=== PATIENT | male | born 1990 | race Caucasian/White ===

== ENCOUNTER 2018-06-13 22:59 | Inpatient (IN) | payer OTHER ==
[~2018-06-13] VITALS: Ht 182.9 cm; Wt 97.5 kg
[~2018-06-13 22:59] MED LIST: CATAPRES0.2 MG PO; DEPAKOTE500 M1 PO; DIVALPROEX SOD500 M2 PO; NICOTINE PATCH1 EAC2 TOP
--- NOTE | 2018-06-13 23:20 | ED PSYCHIATRIC COMPLAINT ---
See Addendum History of Present Illness General Chief Complaint: Psychiatric Related Complaint Stated Complaint: "SI THOUGHTS" Source: patient Exam Limitations: no limitations Vital Signs & Intake/Output Vital Signs & Intake/Output Vital Signs Date Time Temp Pulse Resp B/P B/P Pulse O2 O2 Flow FiO2 Mean Ox Delivery Rate 06/14 0654 98.2 78 18 138/72 98 Room Air 06/14 0121 97.8 76 18 122/64 98 Room Air 06/14 0000 98.7 72 18 115/74 06/13 2320 Room Air 06/13 2320 115/74 06/13 2311 98.7 72 18 98 Room Air ED Intake and Output 06/14 0000 06/13 1200 Intake Total 0 Output Total Balance 0 Intake, Oral 0 Patient 215 lb Weight Weight Reported by Patient Measurement Method Allergies Coded Allergies: No Known Allergies (06/02/17) Reconcile Medications Clonidine (Catapres) 0.2 MG TABLET 0.2 MG PO 2200 reduce anxiety for sound sleep Divalproex Sodium 500 MG TABLET.DR 500 MG PO 0800 mood stabilization one tablet in the morning and two tablets in the evening (total of three tablets daily) Triage Note: PT TO ED FOR +SI THOUGHTS "I WOULD TRY TO OVERDOSE" "I TRIED ON SATURDAY, I DID SO MUCH, BUT I WOKE UP" DENIES HI. ALSO REQUESTS DETOX FROM HEROIN. INJECTS 10 BAGS DAILY, LAST USED THIS AM. DENIES ETOH. SNORTS COCAINE, LAST USED 3 DAYS AGO. Triage Nurses Notes Reviewed? yes Onset: Gradual Duration: week(s):, waxing and waning Timing: recent history Severity: moderate, severe Associated Symptoms: anxiety, suicidal ideation HPI: 27 YO gentleman h/o depression, and heroin/cocaine abuse, presents with several weeks of depression and suicidality. He shares that he injects 10 bags/heroin per day as well as doing cocaine. He last used heroin this morning and last used cocaine several days ago. He notes that he tried to overdose several days ago, "but I woke up." He denies HI, hallucinations and is otherwise well. (Rose BOOTH,Camilo Somers) Past History Travel History Traveled to [place] past 21 day No Medical History Any Pertinent Medical History? 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 No (Rose BOOTH,Camilo Somers) Review of Systems Review of Systems Constitutional: Reports: no symptoms. EENTM: Reports: no symptoms. Respiratory: Reports: no symptoms. Cardiovascular: Reports: no symptoms. GI: Reports: no symptoms. Genitourinary: Reports: no symptoms. Musculoskeletal: Reports: no symptoms. Skin: Reports: no symptoms. Neurological/Psychological: Reports: no symptoms. Hematologic/Endocrine: Reports: no symptoms. Immunologic/Allergic: Reports: no symptoms. All Other Systems: Reviewed and Negative (Rose BOOTH,Camilo Somers) Physical Exam Physical Exam General Appearance: well developed/nourished, mild distress Head: atraumatic Eyes: Bilateral: PERRL, EOMI. Ears, Nose, Throat: normal pharynx, normal ENT inspection Neck: normal inspection, supple, full range of motion Respiratory: no respiratory distress Cardiovascular: regular rate/rhythm Extremities: normal range of motion Neurological/Psychiatric: no motor/sensory deficits, awake, alert, flat, oriented x 3 Appearance/Memory/Insight: appropriate appearance, appropriate insight Behavoir/Eye Contact/Speech: cooperative Thoughts/Hallucinations: no apparent hallucination SAD PERSONS SAD PERSONS Response Value Male Sex? yes 1 Depression/Hopelessness? yes 2 Previous Attempts/Psych Care yes 1 Excessive Ethanol/Drug Use? yes 1 Rational Thinking Loss? yes 2 Single//? yes 1 Organized/Serious Attempt yes 2 Social Support? has support 0 Total 10 SAD PERSONS Done? yes (Rose BOOTH,Camilo Somers) Progress Differential Diagnosis: polysubstance abuse, suicidality vs other. Plan of Care: Orders Procedure Date/time Status Regular Diet 06/14 B Active Continuous Observation Monitor 06/13 2320 Active URINE DRUG SCREEN FOR ER ONLY 06/13 2320 Complete ETHANOL 06/13 2320 Complete COMPREHENSIVE METABOLIC PANEL 06/13 2320 Complete CBC WITHOUT DIFFERENTIAL 06/13 2320 Complete EKG 06/13 2320 Active ED CRISIS PSYCH CONSULT 06/13 2320 Active Current Medications Sig/Sabra Start time Last Medication Dose Stop Time Status Admin Clonidine 0.1 MG BID 06/13 2340 UNVr 06/14 (Catapres) 0000 Gabapentin 300 MG Q8 06/13 2340 UNVr 06/14 (Neurontin) 0631 Laboratory Tests 06/14/18 0018: Urine Opiates Screen > 4000.00 H, Methadone Screen 42, Barbiturate Screen 67, Ur Phencyclidine Scrn < 6.00, Amphetamines Screen < 100, U Benzodiazepines Scrn < 85, Urine Cocaine Screen > 1000 H, Urine Cannabis Screen 14.90 06/14/18 0002: Anion Gap 7, Estimated GFR > 60, BUN/Creatinine Ratio 12.0, Glucose 114 H, Calcium 9.1, Total Bilirubin 0.5, AST 22, ALT 43, Alkaline Phosphatase 67, Total Protein 6.5, Albumin 3.6, Globulin 2.9, Albumin/Globulin Ratio 1.2, CBC w Diff MAN DIFF ORDERED, RBC 5.01, MCV 86.1, MCH 29.8, MCHC 34.6, RDW 13.2, MPV 8.1, Gran % 44.0, Lymphocytes % 39.3, Monocytes % 12.2 H, Eosinophils % 4.2, Basophils % 0.3, Absolute Granulocytes 4.8, Segmented Neutrophils 34 L, Band Neutrophils 1, Absolute Lymphocytes 4.3 H, Lymphocytes 47, Monocytes 13 H, Absolute Monocytes 1.3 H, Eosinophils 5, Absolute Eosinophils 0.5, Absolute Basophils 0, Platelet Estimate ADEQUATE, Normocytic RBCs VERIFIED, Normochromic RBCs VERIFIED, Serum Alcohol < 10.0 Initial ED EKG: normal axis, normal intervals, normal p-waves, normal QRS complex, normal sinus rhythm (Rose BOOTH,Camilo Somers) Departure Departure Disposition: HOME OR SELF CARE Condition: Stable Clinical Impression Primary Impression: Depression Secondary Impressions: Polysubstance abuse Referrals: Patient Has No Primary Care Dr (PCP/Family) Departure Forms: Customer Survey General Discharge Information Comments pt signed out to dr. stack, 06/14/18, 7am...crises to evaluate (Rose BOOTH,Camilo Somers) Departure Comments 06/14/2018 The patient was signed out to me by Dr. Rose. He is pending evaluation by crisis. (Jerod Stack DO.)
[2018-06-14 00:21] LABS: ABSOLUTE BASOPHIL COUNT 0 /CUMM (0.0-0.2); ABSOLUTE EOSINOPHIL COUNT 0.5 /CUMM (0.0-0.7); ABSOLUTE GRANULOCYTE CT 4.8 /CUMM (1.4-6.5); ABSOLUTE LYMPH COUNT 4.3 /CUMM (1.2-3.4); ABSOLUTE MONOCYTE COUNT 1.3 /CUMM (0.10-0.60); BASOPHIL % 0.3 % (0.0-2.0); EOSINOPHIL % 4.2 % (0-5); HEMATOCRIT 43.2 % (42-52); MEAN CORPUSCULAR HGB 29.8 PG (27.0-31.0); MEAN CORPUSCULAR HGB CONC 34.6 G/DL (33.0-37.0); MEAN CORPUSCULAR VOLUME 86.1 FL (80.0-94.0); MEAN PLATELET VOLUME 8.1 FL (7.4-10.4); PLATELET COUNT 220 /CUMM (130-400); RBC DISTRIBUTION WIDTH 13.2 % (11.5-14.5); RED BLOOD CELL CT 5.01 /CUMM (4.70-6.10)
--- NOTE | 2018-06-14 08:11 | ED PSYCH CRISIS CONSULTATION ---
See Addendum Crisis Consult Basic Assessment Date of Consult: 06/14/18 Responsible Person/Accompanied By: Self Insurance Authorization: Insurance #1: Insurance name: GREGORIO HO Phone number: Policy number: [id number] Group number: Authorization number: ED Provider: Patient's ED Provider: Jerod Stack DO Primary Care Physician: Patient's PCP: Patient Has No Primary Care Dr PCP's Phone Number: Current Psychiatrist: None Chief Complaint: Psychiatric Related Complaint Patient's Quote: "I've been using Heroin and depression." Present Illness: The patient is a 27 year old, single male presenting to the ED with increased depression, suicidal ideations and a request to detox. The patient has a long history of mental health and substance abuse issues with subsequent treatment. He presents with a depressed mood and flat affect. He reports that his depression has increased over the last week, however is unable to state a specific trigger. He states that he did overdose on Saturday and denies that it was a specific suicide attempt, however does state that he was upset when he woke up. Of note, he did tell triage that he overdosed in a suicide attempt. He reports that he has been feeling depressed, helpless, hopeless, useless and worthless. He denies any current suicidal ideations however, states "I don't want to live." He denies any AH / VH / HI. He states that he has never attempted suicide in past, however has had suicidal thoughts. He reports that he has had sleep disturbances and poor motivation. He denies any history of trauma or abuse.He is currently living with a friend, denies being in a relationship and states that he does not have any children. He reports that he has not been working and that he has only been supporting himself through help from family and friends. He has been abusing Cocaine and Heroin and states his Cocaine use is intranasal and "not often," his Heroin use is daily and IV 10-15 bags. He is not currently in any treatment and was last on [facility] in 2017. He believes that he needs another inpatient admission. He states that there is no one available to contact for collateral. The C-SSRS was completed and placed in the chart. Patient's Address: [address] [place] [address] Other Phone Number: Who Do You Live With? Other (see notes) Family/Informants Interviewed: He states that there is no one available to contact. Allergies - Coded Allergies: No Known Allergies (06/02/17) Current Medications - Scheduled Medications Clonidine (Catapres) 0.2 MG TABLET 0.2 MG PO 2200 reduce anxiety for sound sleep #14 TAB Prescribed by Del Zaman MD on 06/06/17 Divalproex Sodium 500 MG TABLET.DR 500 MG PO 0800 mood stabilization #42 TAB Prescribed by Del Zaman MD on 06/06/17 Laboratory Results: Laboratory Tests 06/14/18 0018: Urine Opiates Screen > 4000.00 H, Methadone Screen 42, Barbiturate Screen 67, Ur Phencyclidine Scrn < 6.00, Amphetamines Screen < 100, U Benzodiazepines Scrn < 85, Urine Cocaine Screen > 1000 H, Urine Cannabis Screen 14.90 06/14/18 0002: Anion Gap 7, Estimated GFR > 60, BUN/Creatinine Ratio 12.0, Glucose 114 H, Calcium 9.1, Total Bilirubin 0.5, AST 22, ALT 43, Alkaline Phosphatase 67, Total Protein 6.5, Albumin 3.6, Globulin 2.9, Albumin/Globulin Ratio 1.2, CBC w Diff MAN DIFF ORDERED, RBC 5.01, MCV 86.1, MCH 29.8, MCHC 34.6, RDW 13.2, MPV 8.1, Gran % 44.0, Lymphocytes % 39.3, Monocytes % 12.2 H, Eosinophils % 4.2, Basophils % 0.3, Absolute Granulocytes 4.8, Segmented Neutrophils 34 L, Band Neutrophils 1, Absolute Lymphocytes 4.3 H, Lymphocytes 47, Monocytes 13 H, Absolute Monocytes 1.3 H, Eosinophils 5, Absolute Eosinophils 0.5, Absolute Basophils 0, Platelet Estimate ADEQUATE, Normocytic RBCs VERIFIED, Normochromic RBCs VERIFIED, Serum Alcohol < 10.0 Past History Past Medical History Neurological: NONE Cardiovascular: NONE Respiratory: NONE Gastrointestinal: NONE Hepatic: hepatitis C Renal: NONE Musculoskeletal: NONE Psychiatric: bipolar disease, heroin abuse Endocrine: NONE Blood Disorders: NONE Cancer(s): NONE 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 Physical Limitations (Interventions): None noted Psychiatric Treatment History Psych Treatment Psychiatric Treatment Yes Inpatient Treatment Yes Outpatient Treatment Yes Location of [facility] Reason for Treatment Depression, SI and substance abuse Dates of Treatment [facility] 2015 and 2017 Response to Treatment He states that he generally does not follow through with OP treatment. Diagnosis by History: Bipolar Disorder, Opioid Abuse Substance Use/Abuse History Drug Use/Abuse 1 Substances Used/Abused Yes Substance Used/Abused Heroin First Use 17 years old Last Used Yesterday: 06/13/2018 How much used/taken "10-15 bags." How often Daily For how long He has struggled with use for many years and has had periods of sobriety. Route of use IV Drug Use/Abuse 2 Substances Used/Abused Yes Substance Used/Abused Cocaine First Use 18 years old Last Used "2-3 days ago" How much used/taken Unclear How often "not often." For how long Unclear Route of use intranasal Substance Abuse Treatment Substance Abuse Treatment Past Substance Abuse TX Yes Inpatient Treatment Yes [facility] Treatment Opioid abuse Dates of Treatment Last rehab was at [facility], last year Response to Treatment He states that he has been able to be maintain sobriety for 7-8 months. Comments: N/A Current Mental Status Mental Status Orientation: Person, Place, Situation Affect: Depressed, Flat Speech: WNL Neuro-vegetative: Helpless, Sleep Disturbance, Feeling hopeless Appearance Appearance- Dress/Hygiene: The patient was lying in bed, in hospital attire disheveled. Behaviors Thought Process: WNL Thought Content: WNL Memory: WNL Insight: WNL SI/HI Risk Assessment Past Suicidal Ideation/Attempts Yes Current Suicidal Ideation/Att Yes Past Homicidal Ideation/Att: No Current Homicidal Ideation/Attempts No Degree of Intent: He states that he overdosed on Saturday and intitally told triage that it was suicide attempt, however then stated it wasn't. He then states that despite not intentionally trying to kill himself, that he was upset he woke up and does not want to live. Danger To: Self Gravely Disabled: N/A Risk Factors: access to lethal means, high anxiety/distress, SA/MH hospitalized, substance abuse, male, limited support Lethality Ratin PTSD Checklist PTSD Done? patient declined (Denies trauma or abuse hx.) ED Management Sitter: Yes Restraints: No DSM5/PS Stressors/Medical Prob Diagnosis' (DSM 5, Stressors, Medical): F32.9 Unspecified Depressive Disorder F11.20 Opioid Use Disoder F14.20 Stimulant Use disorder, Cocaine type Medical: Unremarkable Stressors: Finances, employment, limited support Current GAF: 28 Comments: N/A Departure Disposition Psych Medical Clearance Date: 06/14/18 Medically Cleared at: 714 Time Started: 714 Time Ended: 799 Psychiatrist Consulted: Dr. Colon Date Disposition Established: 06/14/18 Time Disposition Established: 844 Plan for Disposition - Modality: Bed Search vs. [facility] Contact: N/A Telephone: N/A Rationale for Disposition: The patient presents with depressed mood, anxiety, feeling helpless, feeling hopeless and wanting to . The patient had an overdose this past Saturday and was upset that he woke up. The case was discussed with Dr. Colon and he finds the patient to be in need of an inpatient admission. The patient will be a bed search vs admission to [facility]. Type of IP Admission: Voluntary Additional Instructions: N/A Referrals Patient Has No Primary Care Dr (PCP/Family)
--- NOTE | 2018-06-14 11:57 | IP CRISIS DIAG ASSESS PSYCH ---
Diagnostic Assessment Basic Assessment Insurance Authorization: Insurance #1: Insurance name: GREG[employer]IO HO Phone number: Policy number: [id number] Group number: Authorization number: Prior Authorization obtained through the online [facility] portal Authorization # [id number] Client Authorization # [id number] Type of Request INITIAL Primary Care Physician: Patient's PCP: Patient Has No Primary Care Dr PCP's Phone Number: Patient's Quote: "I've been using Heroin and depression." Present Illness: The patient is a 27 year old, single male presenting to the ED with increased depression, suicidal ideations and a request to detox. The patient has a long history of mental health and substance abuse issues with subsequent treatment. He presents with a depressed mood and flat affect. He reports that his depression has increased over the last week, however is unable to state a specific trigger. He states that he did overdose on Saturday and denies that it was a specific suicide attempt, however does state that he was upset when he woke up. Of note, he did tell triage that he overdosed in a suicide attempt. He reports that he has been feeling depressed, helpless, hopeless, useless and worthless. He denies any current suicidal ideations however, states "I don't want to live." He denies any AH / VH / HI. He states that he has never attempted suicide in past, however has had suicidal thoughts. He reports that he has had sleep disturbances and poor motivation. He denies any history of trauma or abuse.He is currently living with a friend, denies being in a relationship and states that he does not have any children. He reports that he has not been working and that he has only been supporting himself through help from family and friends. He has been abusing Cocaine and Heroin and states his Cocaine use is intranasal and "not often," his Heroin use is daily and IV 10-15 bags. He is not currently in any treatment and was last on [facility] in 2017. He believes that he needs another inpatient admission. He states that there is no one available to contact for collateral. The C-SSRS was completed and placed in the chart. Patient's Address: [address] [place] [address] Other Phone Number: Who Do You Live With? Other (see notes) Feel Safe in Your Relationship No (Denies being in a relationship) If No, Please Elaborate: N/A Marital Status: single Do You Have Children? No Primary Language? [place] Island[place] Language(s) Spoken At Home: [place] Family/Informants Interviewed: He states that there is no one available to contact. Allergies - Coded Allergies: No Known Allergies (06/02/17) Current Medications - Scheduled Medications Clonidine (Catapres) 0.2 MG TABLET 0.2 MG PO 2200 reduce anxiety for sound sleep #14 TAB Prescribed by Del Zaman MD on 06/06/17 Divalproex Sodium 500 MG TABLET.DR 500 MG PO 0800 mood stabilization #42 TAB Prescribed by Del Zaman MD on 06/06/17 Consequences of Psych Med Use: N/A Comment: N/A Lab Results: Laboratory Tests 06/14/18 0018: Urine Opiates Screen > 4000.00 H, Methadone Screen 42, Barbiturate Screen 67, Ur Phencyclidine Scrn < 6.00, Amphetamines Screen < 100, U Benzodiazepines Scrn < 85, Urine Cocaine Screen > 1000 H, Urine Cannabis Screen 14.90 06/14/18 0002: Anion Gap 7, Estimated GFR > 60, BUN/Creatinine Ratio 12.0, Glucose 114 H, Calcium 9.1, Total Bilirubin 0.5, AST 22, ALT 43, Alkaline Phosphatase 67, Total Protein 6.5, Albumin 3.6, Globulin 2.9, Albumin/Globulin Ratio 1.2, CBC w Diff MAN DIFF ORDERED, RBC 5.01, MCV 86.1, MCH 29.8, MCHC 34.6, RDW 13.2, MPV 8.1, Gran % 44.0, Lymphocytes % 39.3, Monocytes % 12.2 H, Eosinophils % 4.2, Basophils % 0.3, Absolute Granulocytes 4.8, Segmented Neutrophils 34 L, Band Neutrophils 1, Absolute Lymphocytes 4.3 H, Lymphocytes 47, Monocytes 13 H, Absolute Monocytes 1.3 H, Eosinophils 5, Absolute Eosinophils 0.5, Absolute Basophils 0, Platelet Estimate ADEQUATE, Normocytic RBCs VERIFIED, Normochromic RBCs VERIFIED, Serum Alcohol < 10.0 Toxicology Screen Completed? Yes Results: positive (Cocaine and Opiates) Symptoms of Use: N/A Past History Past Medical History Medical History: None/Denies Past Surgical History Surgical History LASIX EYE SRX Abuse/Trauma History Trauma History/Current Trauma: Denies Legal History Current Legal Status: none (Pt. denies) Have you ever been arrested? 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 Physical Limitations (Interventions): None noted Psychiatric Treatment History Psych Treatment Psychiatric Treatment Yes Inpatient Treatment Yes Outpatient Treatment Yes Location of Treatment [facility] Reason for Treatment Depression, SI and substance abuse Dates of Treatment [facility] 2016 and 2017 Response to Treatment He states that he generally does not follow through with OP treatment. Diagnosis by History: Bipolar Disorder, Opioid Abuse Risk Factors: access to lethal means, high anxiety/distress, SA/MH hospitalized, substance abuse, male, limited support Substance Use/Abuse History Drug Use/Abuse minimum 12mo Hx 1 Substances Used/Abused Yes Substance Used/Abused Cocaine First Use 18 years old Last Used "2-3 days ago" How much used/taken Unclear How often "not often." For how long Unclear Route of use intranasal Drug Use/Abuse minimum 12mo Hx 2 Substances Used/Abused Yes Substance Used/Abused Heroin First Use 17 years old Last Used Yesterday; 06/13/2018 How much used/taken "10-15 bags" How often Daily Route of use IV Substance Abuse Treatment Substance Abuse Treatment Past Substance Abuse TX Yes Inpatient Treatment Yes [facility] Treatment Opioid abuse Dates of Treatment Last rehab was at [facility], last year Response to Treatment He states that he has been able to be maintain sobriety for 7-8 months. Comments: N/A Sexual History Sexual Concerns: None noted Education History Highest Level of Education: high school/GED Preferred Learning Style: Unclear Current Mental Status Mental Status Orientation: Person, Place, Situation Affect: Depressed, Flat Speech: WNL Neuro-vegetative: Helpless, Sleep Disturbance, Feeling hopeless Appearance Appearance- Dress/Hygiene: The patient was lying in bed, in hospital attire disheveled. Behaviors Thought Process: WNL Thought Content: WNL Memory: WNL Insight: WNL SI/HI Risk Assessment - Minimum 6mo History- Past Suicidal Ideation/Attempts Yes Current Suicidal Ideation/Att Yes Past Homicidal Ideation/Att: No Current Homicidal Ideation/Attempts No Degree of Intent: He states that he overdosed on Saturday and intitally told triage that it was suicide attempt, however then stated it wasn't. He then states that despite not intentionally trying to kill himself, that he was upset he woke up and does not want to live. Danger To: Self Gravely Disabled: N/A Risk Factors: access to lethal means, high anxiety/distress, SA/MH hospitalized, substance abuse, male, limited support Lethality Ratin Needs/Init TX Plan/Goals: Admit to the inpatient unit for safety and symptom stability. Work with the provider on medicatoin evaluation. Work with the treatment team to transition to care in the community. Attend group and individual sessions. AUDIT-C Questionnaire: AUDIT-C Questionnaire: Response Value ETOH use in the past year Never 0 # drinks typical/day Doesn't Drink 0 6 or > drinks per occasion Never 0 Total 0 DSM5/PS Stressors/Medical Prob Diagnosis' (DSM 5, Stressors, Medical): F32.9 Unspecified Depressive Disorder F11.20 Opioid Use Disoder F14.20 Stimulant Use disorder, Cocaine type Medical: Unremarkable Stressors: Finances, employment, limited support Current GAF: 28 Comments: N/A
[2018-06-14 12:37] VITALS: BP 111/66
--- NOTE | 2018-06-14 19:37 | History & Physical ---
General Information and HPI MD Statement: I have seen and personally examined KUNAL MORA and documented this H&P. The patient is a 27 year old M who presented with a patient stated chief complaint of suicidal thoughts- overdose. Source of Information: patient Exam Limitations: no limitations History of Present Illness: The patient is a 27 yo male with h/o depression and substance abuse (heroin/ cocaine) who presented in the ED with complaints of suicidal ideation (thoughts of overdosing on heroin) and requesting detox. His current habit was 10 bags of heroin daily along with cocaine. Last use of heroin was the day of presentation. He has a history of prior detox. At the time of my exam on 06/14 the patient denied any significant withdrawal symptoms. Allergies/Medications Allergies: Coded Allergies: No Known Allergies (06/02/17) Home Med list No Known Home Medications Past History Travel History Traveled to [place] past 21 day No Medical History Neurological: NONE EENT: NONE Cardiovascular: NONE Respiratory: NONE Gastrointestinal: NONE Hepatic: hepatitis C Renal: NONE Musculoskeletal: NONE Psychiatric: bipolar disease, heroin abuse Endocrine: NONE Blood Disorders: NONE Cancer(s): NONE LEAD NURSE/Reproductive: NONE History of MRSA: No History of VRE: No History of CDIFF: No Isolation History: Standard Surgical History Surgical History: none, non-contributory (NO SURGERY), N Past Family/Social History Family History Relations & Conditions if any ALL (THE PATIENT WAS ADOPTED AND HAS NO KNOWLEDGE OF HIS BIOLGICAL FAMILY.). Psychosocial History Where do you live? Home Services at Home: None Primary Language: Malagasy Smoking Status: Current Everyday Smoker (1 PPD) ETOH Use: occasional use Illicit Drug Use: cocaine, heroin Functional Ability ADLs Independent: dressing, eating, toileting, bathing. Ambulation: independent IADLs Independent: shopping, housework, finances, food prep, telephone, transportation , medication admin. Review of Systems Review of Systems Constitutional: Denies: no symptoms. EENTM: Denies: no symptoms. Cardiovascular: Denies: no symptoms. Respiratory: Denies: no symptoms. GI: Denies: no symptoms. Genitourinary: Denies: no symptoms. Musculoskeletal: Denies: no symptoms. Skin: Denies: no symptoms. Neurological/Psychological: Reports: depressed, emotional problems. Hematologic/Endocrine: Denies: no symptoms. Immunologic/Allergic: Denies: no symptoms. Exam & Diagnostic Data Last 24 Hrs of Vital Signs/I&O Vital Signs Date Time Temp Pulse Resp B/P B/P Pulse O2 O2 Flow FiO2 Mean Ox Delivery Rate 06/15 1939 98.4 59 128/64 06/15 0819 98.9 52 17 119/66 06/15 0740 98.9 52 119/66 06/148 55 123/57 06/14 2217 55 123/57 06/14 2008 98.6 60 137/65 Physical Exam General Appearance Alert, Oriented X3, Cooperative, No Acute Distress Skin No Rashes, No Breakdown, No Significant Lesion HEENT Atraumatic, PERRLA, EOMI, Mucous Membr. moist/pink Neck Supple, No JVD, No thryomegaly, +2 Carotid Pulse wo Bruit, No LAD Cardiovascular Regular Rate, Normal S1, Normal S2, No Murmurs Lungs Clear to Auscultation, Normal Air Movement Abdomen Normal Bowel Sounds, Soft, No Tenderness, No Hepatospenomegaly, No Masses Neurological Exam Findings: Normal Gait, Normal Speech, Strength at 5/5 X4 Ext, Normal Tone, Sensation Intact, Cranial Nerves 3-12 NL, Reflexes 2+ Cranial Nerves II through XII: INTACT Extremities No Clubbing, No Cyanosis, No Edema, Normal Pulses, No Tenderness/ Swelling Vascular Normal Pulses, Pulses Symmetrical Last 24 Hrs of Labs/Pedro Luis: Laboratory Tests 06/14/18 0018: Urine Opiates Screen > 4000.00 H, Methadone Screen 42, Barbiturate Screen 67, Ur Phencyclidine Scrn < 6.00, Amphetamines Screen < 100, U Benzodiazepines Scrn < 85, Urine Cocaine Screen > 1000 H, Urine Cannabis Screen 14.90 06/14/18 0002: Anion Gap 7, Estimated GFR > 60, BUN/Creatinine Ratio 12.0, Glucose 114 H, Calcium 9.1, Total Bilirubin 0.5, AST 22, ALT 43, Alkaline Phosphatase 67, Total Protein 6.5, Albumin 3.6, Globulin 2.9, Albumin/Globulin Ratio 1.2, CBC w Diff MAN DIFF ORDERED, RBC 5.01, MCV 86.1, MCH 29.8, MCHC 34.6, RDW 13.2, MPV 8.1, Gran % 44.0, Lymphocytes % 39.3, Monocytes % 12.2 H, Eosinophils % 4.2, Basophils % 0.3, Absolute Granulocytes 4.8, Segmented Neutrophils 34 L, Band Neutrophils 1, Absolute Lymphocytes 4.3 H, Lymphocytes 47, Monocytes 13 H, Absolute Monocytes 1.3 H, Eosinophils 5, Absolute Eosinophils 0.5, Absolute Basophils 0, Platelet Estimate ADEQUATE, Normocytic RBCs VERIFIED, Normochromic RBCs VERIFIED, Serum Alcohol < 10.0 Assessment/Plan Assessment: Impression/Plan: #Depression/Suicidal Ideation- as noted above, the patient presented with increasing depression and thoughts of overdosing on drugs. He described feeling depressed, helpless, and hopeless. No prior suicide attempts in past. Plan: Admit to [facility]/Psychiatry for evaluation. Medication as per psychiatry. #Substance Abuse- heroin and cocaine. Using 10-15 bags of cocaine daily. Requesting detox. Has been through detox previously and did have a period of sobriety. No h/o severe withdrawal. Plan: Methadone detox as per psychiatry. Gabapentin, Librium/Lorazepam, Clonidine. Consider Bentyl/Baclofen if symptomatic. #Nicotine Dependence- smokes 1 PPD cigarettes. Plan: Nicotine Patch. As Ranked By This Provider Problem List: 1. Heroin abuse 2. Depression 3. Suicidal ideation 4. Depression with suicidal ideation 5. Polysubstance abuse Miscellaneous Miscellaneous Documentation Attending Case Discussed With: Isaiah BOOTH,Joao Primary Care Physician: Patient Has No Primary Care Dr - none Patient sees these Specialists NONE Level of Patient Care: BERNA Carnes Consults Needed: Consulting Physician: NONE Attending MD Review Statement Attending Statement Attending MD Statement: examined this patient, reviewed EMR data (avail), discussed with nursing, amended to note Attending Assessment/Plan: ABOVE
[2018-06-14 20:08] VITALS: BP 137/65
[2018-06-14 22:17] VITALS: BP 123/57
[2018-06-15 07:40] VITALS: BP 119/66
--- NOTE | 2018-06-15 08:41 | CPS PROVIDER INIT ASMT PSYCH ---
Psychiatric Admission Display Maker's Note Reviewed: Yes Patient Seen and Examined: Yes Identifying Information: The patient is a 27 year old, single male presenting to the ED with increased depression, suicidal ideations and a request to detox. Chief Complaint: "I've been using Heroin and depression." Reaction to Hospitalization: The patient was admitted voluntarily History of Present Illness Onset of Illness: At least since January 2016 Circumstances Leading to Admission: The patient is a 27 year old, single male presenting to the ED with increased depression, suicidal ideations and a request to detox. The patient has a long history of mental health and substance abuse issues with subsequent treatment. He presents with a depressed mood and flat affect. He reports that his depression has increased over the last week, however is unable to state a specific trigger. He states that he did overdose on Saturday and denies that it was a specific suicide attempt, however does state that he was upset when he woke up. Of note, he did tell triage that he overdosed in a suicide attempt. He reports that he has been feeling depressed, helpless, hopeless, useless and worthless. He denies any current suicidal ideations however, states "I don't want to live." He denies any AH / VH / HI. He states that he has never attempted suicide in past, however has had suicidal thoughts. He reports that he has had sleep disturbances and poor motivation. He denies any history of trauma or abuse.He is currently living with a friend, denies being in a relationship and states that he does not have any children. He reports that he has not been working and that he has only been supporting himself through help from family and friends. He has been abusing Cocaine and Heroin and states his Cocaine use is intranasal and "not often," his Heroin use is daily and IV 10-15 bags. He is not currently in any treatment and was last on [facility] in 2017. He believes that he needs another inpatient admission. 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 History of Suicide Attempts or Gestures The previous record from the inpatient psychiatric unit indicated history of two serious heroin overdoses, in 01/2016 and 05/2017 (precipitating admissions to [facility]) Substance Abuse History: Opioid use disorder (heroin), severe Alcohol use disorder, moderate Allergies: Coded Allergies: No Known Allergies (06/02/17) Home Med List: None recently - Include any medical condition(s) that may - impact the patient's recovery/remission Past History Medical History Neurological: NONE EENT: NONE Cardiovascular: NONE Respiratory: NONE Gastrointestinal: NONE Hepatic: hepatitis C Renal: NONE Musculoskeletal: NONE Psychiatric: bipolar disease, heroin abuse Endocrine: NONE Blood Disorders: NONE Cancer(s): NONE DIRECT OF REAL ESTATE/Reproductive: NONE History of MRSA: No History of VRE: No History of CDIFF: No Isolation History: Standard Surgical History Surgical History: LASIX EYE SRX Psychiatric Family/Social Hx Family History Psychiatric Illness: Patient is adopted Substance Use: Patient is adopted Suicides: Patient is adopted Social History Living Situation: Homeless Significant Relationships (family/friends): Father Education: High school education Vocation/Occupation: Most recent job was [employer], 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 - #1 Recognizing dangerous situations. - #2 Coping Skills. - #3 Basic information about quitting. Status of Tobacco Cessation Counseling: #1, #2 AND #3 Completed Cessation Med Status Nicotine Patch Ordered Alcohol Screening - ETOH screen POS if BAL >=80 or Audit-C>= M4/F3 Audit-C Score from Diag Assess: 0 Blood Alcohol Level: Laboratory Tests 06/14 0002 Toxicology Serum Alcohol (<10 MG/DL) < 10.0 Alcohol Use Screening Results: Neg per Audit C &/or BAL - If ETOH counseling indicated - the following topics are required. - #1 Express concern about the patient's - drinking at unhealthy levels, include informing - of national norms for moderate drinking: - men <= 14 drinks/week, max 4 drinks/occasion - women <= 7 drinks/week, max 3 drinks/occasion - #2 Providing feedback, including linking alcohol to - negative physical effects (liver injury, hypertension) - negative emotional effects (relationship problems and - depression) - negative occupational consequences (reduced work - performance) - #3 Advising the patient to abstain from alcohol or - to drink below national norms for moderate drinking - (as listed above). Status of ETOH Use Counseling: N/A B/C NO ETOH Use Metabolic Screening - Screen if on a Neuroleptic Medication - Metabolic screening should include: - Blood Pressure, BMI, Glucose or Hgb A1c, & a - Lipid profile from within the past 365 days. Metabolic Screening Not Applicable, patient not on a neuroleptic. Exam and Plan Mental Status Examination Ambulation Status: Patient was steady on his feet Appearance: Unremarkable appearance Attitude towards examiner: He was calm and cooperative Psychomotor activity: He showed normal psychomotor activity Behavior: There were no abnormal behaviors Quality of speech: Normal speech Affect: Good range of affect Mood: Moderate depression Suicidal Ideation: Denied thinking of suicide today Homicidal Ideation: Denied thinking violence or homicide today Hallucinations: Denied hallucinations Paranoid/Delusional Material: Denies feeling paranoid, there were no delusions during the interview Difficulties with thought organization: Coherent, no thought disorder Insight: Partial insight Judgment: Questionable judgment Orientation: Alert and oriented to time, place, and person. Cognition: He did not seem to have difficulties with information processing, attention, or concentration. Memory Function: No short-term memory impairments Estimate of intellectual functioning: Average Assets/Strengths Patient Identified Assets/Strengths: The patient is healthy, has a supportive father, and seems to be motivated Impression/Plan Impression and Plan: 27-year-old single white male who presented with suicidal suicide thoughts in the context of relapsing. The patient is also homeless. - Include all active medical diagnosis that require tx DSM 5 Diagnosis(es): By history only, unspecified bipolar Opioid use disorder, severe Alcohol use disorder, moderate, he was negative for alcohol when he came into the emergency room this time - Initial Tx Plan for Active Psych & Medical Conditions Treatment Plan: Inpatient psychiatric care with safety checks every 15 minutes Opioid detoxification using methadone taper Patient is on the fence regarding psychotropic medications. Group therapy, milieu therapy, activities therapy Nursing assessments and vital signs Biopsychosocial assessment, collateral information, and aftercare planning to Daily evaluations by psychiatrist - Factors that would help patient function - in a less restrictive setting. Factors: Patient will be discharged once his detoxification from methadone is completed and if he continues to deny thoughts of suicide.
[2018-06-15 19:39] VITALS: BP 128/64
[2018-06-16 07:54] VITALS: BP 127/75
--- NOTE | 2018-06-16 15:28 | SOCIAL WORKER SOCIAL HX PSYCH ---
Social History Basic Assessment Insurance Authorization: Insurance #1: Insurance name: [employer] Phone number: Policy number: [id number] Group number: Authorization number: Curr Source of Income/Entitlements: basic needs Primary Care Physician: Patient's PCP: Patient Has No Primary Care Dr PCP's Phone Number: Present Problem: The following was obtained from the diagnostic assessment by Abby Saunders LCSW. resent Illness: The patient is a 27 year old, single male presenting to the ED with increased depression, suicidal ideations and a request to detox. The patient has a long history of mental health and substance abuse issues with subsequent treatment. He presents with a depressed mood and flat affect. He reports that his depression has increased over the last week, however is unable to state a specific trigger. He states that he did overdose on Saturday and denies that it was a specific suicide attempt, however does state that he was upset when he woke up. Of note, he did tell triage that he overdosed in a suicide attempt. He reports that he has been feeling depressed, helpless, hopeless, useless and worthless. He denies any current suicidal ideations however, states "I don't want to live." He denies any AH / VH / HI. He states that he has never attempted suicide in past, however has had suicidal thoughts. He reports that he has had sleep disturbances and poor motivation. He denies any history of trauma or abuse.He is currently living with a friend, denies being in a relationship and states that he does not have any children. He reports that he has not been working and that he has only been supporting himself through help from family and friends. He has been abusing Cocaine and Heroin and states his Cocaine use is intranasal and "not often," his Heroin use is daily and IV 10-15 bags. He is not currently in any treatment and was last on [facility] in [facility]. He believes that he needs another inpatient admission. He states that there is no one available to contact for collateral. The C-SSRS was completed and placed in the chart. Primary Language? Chinese Language(s) Spoken At Home: Chinese Living Situation Other Living Arrangement: homeless living w/friend Feel Safe Where You Are Living No Feel Safe in Relationships? Yes Comments: Pt reports he has been bouncing from place to place, he is currently homeless. PT reports his father has irvin support in helping him find a sober house to stay at. 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 No Relationship w/Mother: "Antione" Relationship w/Father: "Antione" Any Sibling(s)? Yes Sibling's Gender(s)/Age(s): female Sibling 1:, female Sibling 2:, male Sibling 3:, male Sibling 4: Relationship w/Sibling(s): " I don't talk to three of them because they are addicts." Relationship w/Friends: The patient reports that he does have some friends and finds those relationships to be "fine." Family Psych/Sub Abuse/Add Hx: drug of choice Abuse/Trauma History Trauma History/Current Trauma: Denies Legal History Legal Guardian/Address/Phone: Self Current Legal Status: none Pending Court Dates: none Have you ever been arrested Yes Number of Arrests: 7 Hx of Juvenile Legal Charges? No If Yes: Unclear Hx of Adult Legal Charges? 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 Weaknesses: isolative, relapse history, substance abuser, limited supports. Physical Limitations (Interventions): None noted Last Physical: unknown History of Seizures? No History of Blackouts? No ADL Limitations: None noted [place]/Social/Peer Relations The patient states that he does have friends and he finds those relationships to be "fine." Meaningful Activities: Pt reports playing sports such as football and basketball to pass time and going to the gym. Childhood Voodoo: Jewish Current Oriental Orthodox Affiliation: Agnostic Is Spirituality Important to You? "yeah" Patient's Ethnicity: Tristanian Cultural/Ethnic Issues: The patient was adopted from [facility], when he was 4 years old. Are There Developmental Issues? No Milestones Achieved: fine motor, gross motor Psychiatric Treatment History Psych Treatment Inpatient Treatment Yes Outpatient Treatment Yes Location of Treatment [facility] Reason for Treatment Depression, SI and substance abuse Dates of Treatment [facility] 2016 and 2017 Response to Treatment He states that he generally does not follow through with OP treatment. Treatment of Prior Episodes: [facility] in 2016 and 2017. Diagnosis: Bipolar Disorder, Opioid Abuse Psychodynamic Issues: The patient was adopted from [facility] when he was 4 years old. Risk Factors: access to lethal means, high anxiety/distress, SA/MH hospitalized, substance abuse, isolate/no social support, poor impulse control, lack of outcome concern, lives alone, male, limited support Substance Use/Abuse History Drug Use/Abuse:Min 12 mo hx Substance Used/Abused Heroin First Use 17 years old Last Used Yesterday; 06/13/2018 How much used/taken "10-15 bags" How often Daily For how long Unclear Route of use IV Have Had Periods of Sobriety? Yes Explain: Pt reports his longest sobriety was 7-8 months adnd said going to meeting really helped him. Relapse History? Yes Have You Ever Attended AA? Yes Do You Attend AA Currently? Yes Do You Have a Sponsor? Yes (Maddie) Symptoms of Use: N/A Substance Abuse Treatment Substance Abuse Treatment Inpatient Treatment Yes Out[facility] Treatment Yes [facility] Reason for Treatment Opioid abuse Dates of Treatment Last rehab was at [facility], last year Response to Treatment He states that he has been able to be maintain sobriety for 7-8 months. Sexual History Sexually Active Yes Sexual Concerns: None noted Education History Highest Level of Education: high school/GED Highest Grade Completed: 12th grade Vocational Year Completed: N/A Number of College Years: 0 College Degree/Major: N/A Other Degree(s): N/A Preferred Learning Style: visual, auditory, experiential HX of Learning Difficulties: None reported Barriers to Learning: None reported Special Communication Needs: None reported Employment History Employment Unemployed Not in Labor Force: N/A No. of Jobs in Last 5 Years: 2 Attendance: [facility] Performance: Good Comments: N/A History Have You Been in The ? No If Yes, Explain: N/A Type of Discharge: N/A Date of Discharge: N/A Current Mental Status Mental Status Orientation: Person, Place, Situation Affect: Appropriate, Flat Speech: WNL Neuro-vegetative: Helpless, Sleep Disturbance, Feeling hopeless Appearance Appearance- Dress/Hygiene: Pt was dressed in his own clothing, sitting in the community by the TV. Behaviors Thought Process: WNL Thought Content: WNL Memory: WNL Insight: WNL SI/HI Risk Assessment Past Suicidal Ideation/Attempts Yes Current Suicidal Ideation/Att No Past Homicidal Ideation/Att: No Current Homicidal Ideation/Attempts No Degree of Intent: He states that he overdosed on Saturday and intitally told triage that it was suicide attempt, however then stated it wasn't. He then states that despite not intentionally trying to kill himself, that he was upset he woke up and does not want to live. Danger To: Self Gravely Disabled: N/A Risk Factors: SA/MH Hospitalization(s), Hx of suicide attempt(s), Isolated/no social suppor, Lives alone, Lack of concern outcome, Male, Poor impulse control, Substance Abuse Lethality Ratin - Conclusion and Recommendations for treatment - and discharge planning Summary: Wool Brusher was able to meet with pt and complete social history. Pt was in community sitting by TV. Pt denies SI, HI, AH, VH. He has settled into the [facility] fine and says he goes to groups and has been participating. Pt reports his father has been a support in helping find a sober house to stay in. PT has a veterinary medical officer out of [place] that pt reports he needs to contact at some point, PO is Oriana Watkins. Pt does not know number. Pt reports having a child but is not a part of their life. Pt reports he is feeling "okay" today.
--- NOTE | 2018-06-16 16:33 | SOCIAL WORKER PROG NOTE PSYCH ---
Social Work Progress Note Progress Note Dariel shared that he relapsed and "lost everything." Stated he has been using heroin for the past 3-4 months. Overdosed 2x's and narcaned. He overdosed a couple weeks ago and this past October. Lost his job a month ago. He reported he was staying in a sober house for the past 8 months and he relapsed there. No particular trigger, just thoughts about using. He was not in an outpatient tx and was not on medication at the time. Came in to the hospital to try and start over, stated "I'm tired of feeling like shit." His last rehab was a year ago at [facility]. He would like to be rereferred to that program, but he is also considering returning to [facility] with another Sober House. Stated he tried calling a program today and it sounded promising. States he may have a bed on and will find out more tomorrow. Slight withdrawal symptoms, but feels symptoms are being managed with Methadone. Complaints of restlessness and anxiety at night. Describes his mood as "blah" today. He feels good about starting on Wellbutrin and stated his depression is often overlooked. If he returns to a sober house in [place] he would like to go to [facility]. He has been there in the past. I asked how he would pay for a sober house? He said his Father is going to help him out initially until he can get back on his feet.
--- NOTE | 2018-06-16 17:07 | CP SOUTH PROGRESS NOTE PSYCH ---
Psych (Inpt) Progress Note Progress Note Include the following elements, when applicable: Involvement in the active treatment of the patient with behavioral observations of the patient and the patient's response to the treatment. Review of the ongoing treatment process in the context of the treatment plan. Indication of how multi-disciplinary staff members are carrying out the treatment plan. Plans for future interventions and recommendations for revision of the treatment plan. Liaison with other physicians/providers. Progress Note: Case and treatment plan discussed in team meeting. Staff reports that the patient is denying suicidal ideation. Very superficial. In bed during the day and out at night. Had an upsetting phone call last evening. The patient is a 27-year-old white male admitted on 06/14/18. Patient seen at 11:58 AM with PA shukri. Patient was in group prior to meeting with us in office. The patient is casually dressed. He has tattoos on his left forearm. He has a light quigley. States he just came in detoxing from heroin. Reports he was feeling "like sh*t, down, depressed." Reports history of 4 overdoses, including one intentional overdose last week. Reports he lost his job and was kicked out of his sober house for using. He was staying with a friend in the basement. Reports he has been in and out of treatments for 10 years. He felt hopeless and helpless. He identifies his father as a support. Parents live in [place] but he does not find mother supportive, as she had a brother who from a heroin overdose. Affect is calm and blunted to depressed. Reports feeling better, "like I'm willing to give it another chance. " Rates sad mood 7/10. Anxiety comes and goes but is currently 5/10. Feels hopeless, helpless, worthless and guilty. Denies active and passive suicidal ideation. Denies homicidal ideation. Denies auditory and visual hallucinations. Denies paranoid ideation and magical wing. Oriented 3 but gave the date as the or May,. Reports sleep is okay and appetite is okay, good. Energy is very low. Tolerating medications well, without complaint. Reports slight withdrawal symptoms of chills, feeling hot, and anxiety. Reports he does not believe he has bipolar disorder, as he has never gotten manic. We reviewed major risks and benefits of Wellbutrin, including risks of julisa and seizures. Denies history of seizures. Denies history of eating disorder. Patient was advised that concomitant use of alcohol and Wellbutrin could increase the risk of seizures during alcohol withdrawal. Patient was advised of the risk of headaches from Wellbutrin. Patient anticipates going to sober housing in [place]. Anticipate likely discharge on . IMPRESSION: Slow progress. Continue present treatment plan. Monitor response to addition of Wellbutrin. Anticipate discharge on with plan as above.
[2018-06-16 20:01] VITALS: BP 144/65
[2018-06-17 07:43] VITALS: BP 137/71
--- NOTE | 2018-06-17 11:04 | SOCIAL WORKER PROG NOTE PSYCH ---
Social Work Progress Note Progress Note KUNAL MORA [id number] 1990 KUNAL MORA [id number] Pended Authorization # Client Authorization # Type of Request [id number] CONCURRENT Date of Admission/ Start of Services Requested From Submission Date 06/14/2018 06/17/2018 06/17/2018
--- NOTE | 2018-06-17 11:20 | SOCIAL WORKER PROG NOTE PSYCH ---
Social Work Progress Note Progress Note Faxed referral back to [facility]
--- NOTE | 2018-06-17 13:53 | SOCIAL WORKER PROG NOTE PSYCH ---
Social Work Progress Note Progress Note Dariel reported that he is experiencing some slight withdrawal symptoms ( chills and achiness). Feels generally good with detox though at this point. Expressed some anxiety over not having a place to go to at this point. He is feeling worried about securing a bed. He left a number with the gentleman from the sober house, but hasn't heard back yet. He also left his Father's number for him to call him as well. I let him know that the referral to [facility] was faxed. Encouraged him to follow up for a phone screening. Gave him the phone number. Also gave him a list of other sober houses he could call. Reports mood is down, but feeling optimistic that the Wellbutrin will help. Talked about never being on an antidepressant before. Mother and Sister are both on antidepressants and doing well apparently. He is able to work through his negative thoughts/ self talk. Feeling quite down about losing everything and having to start over again. Wants to try and get things back on track. Interested in attending AA again.
--- NOTE | 2018-06-17 16:32 | CP SOUTH PROGRESS NOTE PSYCH ---
Psych (Inpt) Progress Note Progress Note Include the following elements, when applicable: Involvement in the active treatment of the patient with behavioral observations of the patient and the patient's response to the treatment. Review of the ongoing treatment process in the context of the treatment plan. Indication of how multi-disciplinary staff members are carrying out the treatment plan. Plans for future interventions and recommendations for revision of the treatment plan. Liaison with other physicians/providers. Progress Note: Case and treatment plan discussed in team meeting. Staff reports that the patient is denying suicidal ideation. Present in the milieu. Calm and cooperative. Patient seen at 1:23 PM. He was in group prior to meeting with me and medical student in office. States he is okay. Mood is okay, a little anxious at around 6/10. Reports he is trying to reach a sober house process owner. Rates sad mood 3/10. Denies feeling hopeless, helpless, worthless or guilty. Denies active and passive suicidal ideation. Denies homicidal ideation. Denies auditory and visual hallucinations and paranoid ideation. Reports sleep was okay but he had difficulty falling asleep and slept for about 3 hours. Plans to try Benadryl tonight. Appetite is good. Energy is medium. Reports that withdrawal symptoms are manageable. Agrees to reduction in clonidine dose to 0.05 mg twice daily. IMPRESSION: Slow progress. Continue present treatment plan. Anticipate discharge on , upon completion of methadone taper to off. Patient is looking into sober houses.
[2018-06-17 19:23] VITALS: BP 133/80
[2018-06-18 07:56] VITALS: BP 115/60
--- NOTE | 2018-06-18 14:44 | SOCIAL WORKER PROG NOTE PSYCH ---
Social Work Progress Note Progress Note Dariel reports that he talked to the information support project manager from the [facility] and he is supposed to call and confirm his bed for tomorrow. He said he is pretty sure it will work out, but just in case he stated his Dad told him he will not be homeless and he will help him out. Dariel reports feeling well. He would like me to reach out to his protection officer to let him know that he is here. I told him I will follow up on that today. He is interested in going to [facility] in [place] for aftercare. He said he had an intake there about a week or so ago. Signed a release for me to contact them.
--- NOTE | 2018-06-18 16:05 | CP SOUTH PROGRESS NOTE PSYCH ---
Psych (Inpt) Progress Note Progress Note Include the following elements, when applicable: Involvement in the active treatment of the patient with behavioral observations of the patient and the patient's response to the treatment. Review of the ongoing treatment process in the context of the treatment plan. Indication of how multi-disciplinary staff members are carrying out the treatment plan. Plans for future interventions and recommendations for revision of the treatment plan. Liaison with other physicians/providers. Progress Note: Case discussed with nurse, who reports that the patient is doing okay. Patient seen at 2:08 PM. States he is okay. Denies being in withdrawal. Hopes to confirm tonight placement at a sober house in [place]. Reports alternatively he can stay with his father in [place]. Affect is calm and blunted. Mood is okay. Rates sad mood 4/10 and anxiety 5/10. Denies feeling hopeless, helpless, worthless or guilty. Denies active and passive suicidal ideation. Denies homicidal ideation. Denies auditory and visual hallucinations and paranoid ideation. Reports he slept better with use of Benadryl. Appetite is good. Energy is pretty low. Tolerating current medications well. He agrees to discontinuation of clonidine, which we will now stop. IMPRESSION: Condition improving. Anticipate discharge tomorrow with tentative plan to go to a sober house and attend [facility].
[2018-06-18 19:28] VITALS: BP 145/76
[2018-06-19 07:52] VITALS: BP 112/71
[2018-06-19] MEDS ORDERED: GABAPENTIN300 M2 PO (10:55)
[2018-06-19] MEDS ORDERED: WELLBUTRIN SR100 M2 PO (10:55)
[2018-06-19] MEDS ORDERED: DIPHENHYDRAMINE50 M1 PO (10:55)
[2018-06-19] MEDS ORDERED: NICOTINE PATCH1 EAC3 TOP (10:55)
[2018-06-19] MEDS ORDERED: NARCAN4 MG NAS (10:55)
--- NOTE | 2018-06-19 11:01 | Patient Discharge Instructions ---
Psych Discharge Inst General Discharge Information Reason for Admission: Increased depression, suicidal ideation, requesting detox. Psy Discharge Primary Diag+ Unspecified depression Psy Discharge Secondary Diag+ Hx unspecified bipolar do Opioid use disorder Cocaine use disorder Alcohol use disorder Hx hepatitis C Summary Tests/Major Procedures Lab ALT 43 U/L 06/14/18 0002 AST 22 U/L 06/14/18 0002 BUN 12 mg/dL 06/14/18 0002 Calcium 9.1 mg/dL 06/14/18 0002 Carbon Dioxide 26 mmol/L 06/14/18 0002 Chloride 105 mmol/L 06/14/18 0002 Creatinine 1.0 mg/dL 06/14/18 0002 Estimated GFR > 60 ml/min 06/14/18 0002 Glucose 114 mg/dL H 06/14/18 0002 Potassium 3.8 mmol/L 06/14/18 0002 Sodium 138 mmol/L 06/14/18 0002 Absolute Lymphocytes 4.3 /CUMM H 06/14/18 0002 Absolute Monocytes 1.3 /CUMM H 06/14/18 0002 Hct 43.2 % 06/14/18 0002 Hgb 14.9 G/DL 06/14/18 0002 Monocytes 13 % H 06/14/18 0002 Monocytes % 12.2 % H 06/14/18 0002 Plt Count 220 /CUMM 06/14/18 0002 Segmented Neutrophils 34 % L 06/14/18 0002 WBC 11.0 /CUMM H 06/14/18 0002 Serum Alcohol < 10.0 MG/DL 06/14/18 0002 Urine Cocaine Screen > 1000 NG/ML H 06/14/18 0018 Urine Opiates Screen > 4000.00 NG/ML H 06/14/18 0018 EKG 06/13/18 showed sinus rhythm @ 57, no previous tracing, normal EKG, QT 424, QTC 413. Studies Pending at DC: None. Patient refuses TSH on date of discharge. Patient Instructions Contact Information Your Psychiatrist on [facility] was Camilo Guerra MD * If you are experiencing an emergency related to this hospitalization, please call [phone] to contact the treating psychiatrist or the psychiatrist-on- call. * To Request a copy of your medical records, please contact the Medical Records Department at [phone]. * To request results of studies pending at the time of discharge, please call [phone]. * Continue your Medications until directed to stop by your Healthcare provider. General Medication Information Please continue to take your new medications and your continued home medications , unless otherwise indicated on your discharge medication list, or unless directed by your MD or MATERIAL EXPEDITER to stop them. Special Instructions Diet Regular Activity Normal Other Inst/Recommendations Stay away from drugs&alcohol. See PCP for abnormal labs and to check a TSH - Tobacco Use Treatment Offered Post DC Medications Offered: Script Given-See Med List Post DC Tobacco Treatment Plan: [facility] Program Appt Date: 06/25/18 Program Appt Time: 1600 - EtOH/Drug Use D/O Treatment Offered Post DC Medications Offered: Med Not Indicated for D/O Post DC EtOH/SubAbuse TX Plan: Other SubAbuse/Dual Pgm ([facility].) Metabolic Screening ([x]) Not Applicable, patient not on a neuroleptic. OR () Patient on a neuroleptic(s) . Enter below results for Hemoglobin A1C, and lipid panel if obtained during the last 365 days. BMI: 29.100 Blood Pressure: 112/71 Laboratory Results From [facility] EHR (If applicable): Advance Directives Does the Patient have Medical Advance Directives No/Refused further info Does Pt have Psychiatric Advance Directives? No/Refused further info Does Patient have a Designated Surrogate Decision Maker: No Information About Psychiatric Advance Directives Provided? Refused Discharge Plan Post Hospital Treatment Plan: Pt plans to stay at a sober house in [place], [place].
--- NOTE | 2018-06-19 11:09 | SOCIAL WORKER PROG NOTE PSYCH ---
Social Work Progress Note Progress Note Called [facility] in [place]. Having a problem with the phone- it just beeps. Dariel met with Dr. Guerra and I this morning. I let him know I was having a problem getting a hold of [facility]. He didn't seem to feel that it was an issue stating he already had his intake and would resume services. Told him I'd like to get a hold of someone there to confirm everything. He stated he had the pesticide use medical coordinator's cell phone number because of AA meetings together. He gave me her cell phone number to call. Thought this was a bit odd. Chito is reporting he is ready to go. Seems a bit anxious to leave at this point. Denies SI/HI, AH/VH. Denies feelings of sadness, helplessness, hopelessness, worthlessness, and guilt. Stated sleep and energy are ok. Called the phone number he gave for the [facility] personnel officer. I apologized for calling her cell and stated I was having difficulty getting through to the program directly. She said Chito had come in for an intake, but she is not sure if she will need to do another one at this point. She stated she will call me when she gets to the program at 1pm today. That is when they open today. I explained to Chito that he will have to wait until after 1pm to leave. He is upset over this. Received a voicemail at 1pm that Chito can come for an intake today at 3:30 and start IOP tomorrow. He said he could make that appt.
--- NOTE | 2018-06-19 14:41 | CP SOUTH PROGRESS NOTE PSYCH ---
Psych (Inpt) Progress Note Progress Note Include the following elements, when applicable: Involvement in the active treatment of the patient with behavioral observations of the patient and the patient's response to the treatment. Review of the ongoing treatment process in the context of the treatment plan. Indication of how multi-disciplinary staff members are carrying out the treatment plan. Plans for future interventions and recommendations for revision of the treatment plan. Liaison with other physicians/providers. Progress Note: Case and treatment plan discussed in team meeting. Staff reports that the patient is denying suicidal ideation. He reported to staff that he is more than ready to go. Refused a family meeting. I noted that patient has not had a recent TSH and recommend we check when this morning but he refused. Patient seen at 10:36 AM with social services analyst. Patient's affect is calm and blunted. Plans to go to a sober house at [address] [place] [address] in [place]. Feels good. Has no complaints. Affect is calm and blunted. Mood is okay. Rates sad mood 0/10 and anxiety 3/10. Denies feeling hopeless, helpless, worthless or guilty. Denies active and passive suicidal ideation. Denies homicidal ideation. Denies auditory and visual hallucinations and paranoid ideation. Reports sleep and appetite are good. Rates energy 6/10 with 10 being best. Tolerating medications well, without complaint. Denies being in opiate withdrawal. Feels ready and safe for discharge. Plans to go to [facility]. IMPRESSION: Condition improved. Okay for discharge today to go to a sober house and to attend [facility].
--- NOTE | 2018-06-19 14:47 | DISCHARGE SUMMARY REPORT-PSYCH ---
Visit Information Visit Dates/Diagnosis' Admission Date: 06/14/18 Discharge Date: 06/19/18 Reason for Admission: Increased depression, suicidal ideation, requesting detox. Psy Discharge Primary Diag: Unspecified depression Psy Discharge Secondary Diag: Hx unspecified bipolar do Opioid use disorder Cocaine use disorder Alcohol use disorder Hx hepatitis C Hospital Course Significant Lab Findings: Lab ALT 43 U/L 06/14/18 0002 AST 22 U/L 06/14/18 0002 BUN 12 mg/dL 06/14/18 0002 Calcium 9.1 mg/dL 06/14/18 0002 Carbon Dioxide 26 mmol/L 06/14/18 0002 Chloride 105 mmol/L 06/14/18 0002 Creatinine 1.0 mg/dL 06/14/18 0002 Estimated GFR > 60 ml/min 06/14/18 0002 Glucose 114 mg/dL H 06/14/18 0002 Potassium 3.8 mmol/L 06/14/18 0002 Sodium 138 mmol/L 06/14/18 0002 Absolute Lymphocytes 4.3 /CUMM H 06/14/18 0002 Absolute Monocytes 1.3 /CUMM H 06/14/18 0002 Hct 43.2 % 06/14/18 0002 Hgb 14.9 G/DL 06/14/18 0002 Monocytes 13 % H 06/14/18 0002 Monocytes % 12.2 % H 06/14/18 0002 Plt Count 220 /CUMM 06/14/18 0002 Segmented Neutrophils 34 % L 06/14/18 0002 WBC 11.0 /CUMM H 06/14/18 0002 Serum Alcohol < 10.0 MG/DL 06/14/18 0002 Urine Cocaine Screen > 1000 NG/ML H 06/14/18 0018 Urine Opiates Screen > 4000.00 NG/ML H 06/14/18 0018 EKG 06/13/18 showed sinus rhythm @ 57, no previous tracing, normal EKG, QT 424, QTC 413. Patient refused TSH on date of discharge. Course Complications: None. Consultations: Patient was seen by ear pull machine operator Dr. Xvai Schmid for admission history and physical. Per Dr. Schmid' note of 06/14/18: "Assessment: Impression/Plan: #Depression/Suicidal Ideation- as noted above, the patient presented with increasing depression and thoughts of overdosing on drugs. He described feeling depressed, helpless, and hopeless. No prior suicide attempts in past. Plan: Admit to [facility]/Psychiatry for evaluation. Medication as per psychiatry. #Substance Abuse- heroin and cocaine. Using 10-15 bags of cocaine daily. Requesting detox. Has been through detox previously and did have a period of sobriety. No h/o severe withdrawal. Plan: Methadone detox as per psychiatry. Gabapentin, Librium/Lorazepam, Clonidine. Consider Bentyl/Baclofen if symptomatic. #Nicotine Dependence- smokes 1 PPD cigarettes. Plan: Nicotine Patch." Allergies: Coded Allergies: No Known Allergies (06/02/17) Hospital Course/TX Response: The patient was monitored on the unit for safety, substance withdrawal and mood disturbance. He participated in multimodal treatments on the unit. The patient was treated with a tapering down course of methadone for opiate detox. He was also treated with clonidine, which was tapered to off. Detox was uneventful. Wellbutrin was added as Wellbutrin SR 100 mg twice daily for depression. Wellbutrin dose may need to be increased on an outpatient basis as clinically indicated. Patient denies that he has ever had a period of julisa. Suicidal ideation has remitted. Progress note from date of discharge, 06/19/18: "Case and treatment plan discussed in team meeting. Staff reports that the patient is denying suicidal ideation. He reported to staff that he is more than ready to go. Refused a family meeting. I noted that patient has not had a recent TSH and recommend we check when this morning but he refused. Patient seen at 10:36 AM with group social worker. Patient's affect is calm and blunted. Plans to go to a sober house at [address] [place] [address] in [place]. Feels good. Has no complaints. Affect is calm and blunted. Mood is okay. Rates sad mood 0/10 and anxiety 3/10. Denies feeling hopeless, helpless, worthless or guilty. Denies active and passive suicidal ideation. Denies homicidal ideation. Denies auditory and visual hallucinations and paranoid ideation. Reports sleep and appetite are good. Rates energy 6/10 with 10 being best. Tolerating medications well, without complaint. Denies being in opiate withdrawal. Feels ready and safe for discharge. Plans to go to [facility]. IMPRESSION: Condition improved. Okay for discharge today to go to a sober house and to attend [facility]." Discharge HBIPS - Tobacco Use Treatment Offered Post DC Medications Offered: Script Given-See Med List Post DC Tobacco Treatment Plan: [facility] Appt Date: 06/25/18 Program Appt Time: 1600 - EtOH/Drug Use D/O Treatment Offered Post DC Medications Offered: Med Not Indicated for D/O Post DC EtOH/SubAbuse TX Plan: Other SubAbuse/Dual Pgm ([facility]) Program Appt Date: 06/19/18 Program Appt Time: 1530 Metabolic Screening - Screen if on a Neuroleptic Medication - Metabolic screening should include: - Blood Pressure, BMI, Glucose or Hgb A1c, & a - Lipid profile from within the past 365 days. Metabolic Screening ([x]) Not Applicable, patient not on a neuroleptic. OR () Patient on a neuroleptic(s) . Enter below results for Hemoglobin A1C, and lipid panel if obtained during the last 365 days. BMI: 29.100 Blood Pressure: 112/71 Laboratory Results From [facility] EHR (If applicable): Discharge Instructions General Discharge Information Multiple Neuroleptics: ([x]) Not Applicable OR Document below three failed attempts at monotherapy, or a plan to taper to monotherapy, or augmentation of Clozapine. () Discharge Diet Regular Discharge Activity Normal DC Disposition: [facility] and [facility]. Referrals Ordered Referrals Provider Referral 06/19/18 For Groups: [[facility]] [facility] for mental health and substance use treatment Intake 06/19/18 3:30pm [address] [place] [address] Prescriptions Start taking the following new medications: Diphenhydramine HCl (Diphenhydramine HCl) 50 MG CAPSULE 1 Capsule ORAL AT BEDTIME as needed for INSOMNIA Qty = 14 No Refills Comments: Last Taken:06/17/18 Time:10PM Nicotine (Nicotine Patch) 21 MG/24 HOUR PATCH.TD24 1 Patch On the skin DAILY Qty = 14 No Refills Comments: Last Taken:06/18/18 Time:8AM Gabapentin (Gabapentin) 300 MG CAPSULE 1 Capsule ORAL EVERY SIX HOURS NEEDED as needed for ANXIETY/AGITATION/ INSOMNIA Qty = 28 No Refills Comments: Last Taken:06/17/18 Time:3PM Bupropion HCl (Wellbutrin Sr) 100 MG TABLET.ER 1 Tablet ORAL TWICE DAILY Qty = 28 No Refills Comments: Last Taken:06/19/18 TIME:8AM Naloxone HCl (Narcan) 4 MG/ACTUATION SPRAY 1 Kit In the nose SEE INSTRUCTIONS as needed for opioid overdose Qty = 1 No Refills Instructions: prn opioid overdose Comments: Last Taken:TO USE IF NEEDED AT HOME Time: Other Inst/Recommendations Stay away from drugs&alcohol. See PCP for abnormal labs and to check a TSH Studies Pending at Discharge None. Patient refuses TSH on date of discharge. Copies To: [facility]
--- NOTE | 2018-06-19 15:57 | SOCIAL WORKER PROG NOTE PSYCH ---
Social Work Progress Note Faxed Referral(s) Referred To: [facility] Transition of Care Documents sent: Health Summary (Were not able to fax- so mario) Faxed to: mailed to [facility]cada in [place] Faxed by: mailed by Kavitha Luther Date faxed: 06/19/18
--- NOTE | 2018-06-19 15:58 | SOCIAL WORKER PROG NOTE PSYCH ---
Social Work Progress Note Progress Note Was not able to fax tranition of care to [facility] due to a phone problem. So the patient discharge health summary was mailed to them at: [address] [place] [phone]
== END 2018-06-19 13:32 | DRG 753 ==
LOC: ERH 22:59 → ERHI 06-14 11:50 → CP SOUTH 06-14 11:50 → ENTRNSPT 06-14 11:56 → EDTRNSPT 06-14 12:11 → EDTRNSPTSTS 06-14 12:11 → CP SOUTH 06-14 12:21 → CMPTRNSPT 06-14 12:23 → CP SOUTH 06-16 10:27
PROVIDERS: Pediatrics
DX: F31.9 Bipolar disorder, unspecified (principal); F14.90 Cocaine use, unspecified, uncomplicated; F11.90 Opioid use, unspecified, uncomplicated; F10.10 Alcohol abuse, uncomplicated; B18.2 Chronic viral hepatitis C
CPT/HCPCS: 80307; 93005; 93010; G0480; J0515; J1630